=== PATIENT | male | born 1965 | race Caucasian/White ===

== ENCOUNTER 2020-06-28 07:44 | Observation (INO) | payer OTHER ==
[~2020-06-28] VITALS: Ht 182.9 cm; Wt 93.0 kg
[~2020-06-28 07:44] MED LIST: DILTIAZEM 24HR360 MG PO; HYDROCHLOROTHIA25 MG PO; LOSARTAN POTAS100 MG PO; PEPCID40 MG PO
[2020-06-28 08:29] LABS: HEMOGLOBIN 15.2 gm/dl (14.0-17.5); RED BLOOD COUNT 4.97 M/UL (4.20-5.50); WHITE BLOOD COUNT 8.4 K/UL (4.5-11.0)
[2020-06-28 09:08] LABS: BUN/CREATININE RATIO 17 (0-10)
[2020-06-28] MEDS ORDERED: ALLOPURINOL100 MG PO (10:12)
[2020-06-28] MEDS ORDERED: ZINC-22050 MG PO (14:09)
[2020-06-28] MEDS ORDERED: DAILY VITE1 EACH PO (14:10)
[2020-06-28] MEDS ORDERED: VITAMIN D325 MCG PO (14:11)
[2020-06-28] MEDS ORDERED: VITAMIN B-121000 MC3 PO (14:11)
[2020-06-28] MEDS ORDERED: SPIRONOLACTONE50 MG PO (20:43)
[2020-06-29 04:29] LABS: HEMOGLOBIN 13.5 gm/dl (14.0-17.5); WHITE BLOOD COUNT 9.4 K/UL (4.5-11.0)
[2020-06-29 04:42] LABS: RED BLOOD COUNT 4.39 M/UL (4.20-5.50)
[2020-06-29] MEDS ORDERED: KEPPRA 500 MG500 MG PO (09:00)
[2020-06-30 05:25] LABS: BUN/CREATININE RATIO 14 (0-10)
== END 2020-06-30 23:14 | disposition home or self-care (01) ==
LOC: ER1 07:44 → CDU 10:03 → M/S 18:17
PROVIDERS: Emergency Medicine; Physician Assistant Medical; ADMIT Internal Medicine
DX: R56.9 Unspecified convulsions (principal); M62.82 Rhabdomyolysis; E87.1 Hypo-osmolality and hyponatremia; I12.9 Hypertensive chronic kidney disease with stage 1 through stage 4 chronic kidney disease, or unspecified chronic kidney disease; N18.30 Chronic kidney disease, stage 3 unspecified; M10.9 Gout, unspecified; E66.9 Obesity, unspecified; Z88.8 Allergy status to other drugs, medicaments and biological substances; Z79.899 Other long term (current) drug therapy; Z20.822 Contact with and (suspected) exposure to COVID-19; Z68.27 Body mass index [BMI] 27.0-27.9, adult
CPT/HCPCS: 36415; 70450; 70551; 71045; 80048; 80053; 80307; 81001; 82550; 82553; 83690; 83735; 83874; 84484; 85025; 85027; 90471; 93005; 95816; 96365; 96375; 99285; G0378; J1953; J7030; U0002

== ENCOUNTER → 2020-07-03 | Outpatient (CLI) | payer OTHER ==
[~2020-07-03] MED LIST changes: +ALLOPURINOL100 MG PO; +DAILY VITE1 EACH PO; +KEPPRA 500 MG500 MG PO; +SPIRONOLACTONE50 MG PO; +VITAMIN B-121000 MC3 PO; +VITAMIN D325 MCG PO; +ZINC-22050 MG PO
== END ==
LOC: LAB 08:32
PROVIDERS: Internal Medicine Nephrology
DX: N17.9 Acute kidney failure, unspecified (principal); M62.82 Rhabdomyolysis; N26.9 Renal sclerosis, unspecified
CPT/HCPCS: 36415; 80048; 82550

== ENCOUNTER → 2020-07-05 | Outpatient (CLI) | payer OTHER | LOC: LAB 08:10 | PROVIDERS: Internal Medicine Nephrology | DX: M62.82 Rhabdomyolysis (principal) | CPT/HCPCS: 36415; 80053; 82550 ==

== ENCOUNTER → 2020-07-13 | Outpatient (CLI) | payer OTHER ==
[2020-07-14 10:14] LABS: CREATININE, URINE 33.4 mg/dL (Not Estab.)
== END ==
LOC: LAB 08:23
PROVIDERS: Internal Medicine Nephrology
DX: N05.1 Unspecified nephritic syndrome with focal and segmental glomerular lesions (principal); M62.82 Rhabdomyolysis
CPT/HCPCS: 80053; 82043; 82550; 82570; 84156; 84550